=== PATIENT | male | born 1980 | race Two or more races ===

== ENCOUNTER 2024-09-06 10:59 | Outpatient (CLI) | payer OTHER | END 2024-09-06 11:02 | disposition home or self-care (01) | LOC: SONOGRAMA 10:59 | PROVIDERS: ATTEND Pathology Anatomic Pathology | DX: D34 Benign neoplasm of thyroid gland (principal); E07.89 Other specified disorders of thyroid; E04.1 Nontoxic single thyroid nodule ==